=== PATIENT | male | born 1975 | race Caucasian/White ===

== ENCOUNTER 2017-01-29 17:06 | Emergency (ER) | payer BC ==
[~2017-01-29] VITALS: Ht 182.9 cm; Wt 87.1 kg
[2017-01-29] MEDS ORDERED: CEPHALEXIN MONOHYDRATE 500 MG CAPSULE PO ONE ×2 (17:37→18:00)
[2017-01-29] MEDS ORDERED: ACETAMINOPHEN ES 500 MG TABLET ONE (17:37)
[2017-01-29] MEDS ORDERED: TDAP [DIPH/PERTUSSIS/TET] 0.5 ML VIAL IM ONE ×2 (17:38→18:00)
[2017-01-29] MEDS ORDERED: IBUPROFEN 600 MG TABLET PO ONE ×2 (17:38→18:00)
[2017-01-29] MEDS ORDERED: ACETAMINOPHEN ES 500 MG TABLET PO ONE (18:00)
[2017-01-29 19:20] VITALS: BP 136/88
== END 2017-01-29 20:01 | disposition home or self-care (01) ==
LOC: ER 17:08
DX: S42.022A Displaced fracture of shaft of left clavicle, initial encounter for closed fracture (principal); S60.511A Abrasion of right hand, initial encounter; S80.211A Abrasion, right knee, initial encounter; S60.812A Abrasion of left wrist, initial encounter; V28.4XXA Motorcycle driver injured in noncollision transport accident in traffic accident, initial encounter; Y93.89 Activity, other specified; Y92.413 State road as the place of occurrence of the external cause; Y99.8 Other external cause status
CPT/HCPCS: 71010; 73000; 73110; 90471; 90715; 99284; A4606; A6402 ×2; A6403 ×2; Z7610